=== PATIENT | male | born 1945 | race Two or more races ===

== ENCOUNTER 2017-07-07 07:52 | Outpatient (CLI) | payer OTHER | END 2017-07-07 12:19 | disposition home or self-care (01) | LOC: MRI 07:52 | DX: M75.81 Other shoulder lesions, right shoulder (principal) | CPT/HCPCS: 73221 ==

== ENCOUNTER 2017-07-07 08:33 | Outpatient (CLI) | payer OTHER | END 2017-07-07 12:19 | disposition home or self-care (01) | LOC: RAD 08:33 | DX: M15.8 Other polyosteoarthritis (principal); M75.81 Other shoulder lesions, right shoulder ==

== ENCOUNTER 2018-03-16 07:58 | Outpatient (CLI) | payer OTHER | END 2018-03-16 07:59 | disposition home or self-care (01) | LOC: MRI 07:58 | DX: F01.50 Vascular dementia, unspecified severity, without behavioral disturbance, psychotic disturbance, mood disturbance, and anxiety (principal); G31.84 Mild cognitive impairment of uncertain or unknown etiology | CPT/HCPCS: 70551 ==

== ENCOUNTER 2018-07-27 08:01 | Outpatient (CLI) | payer OTHER | END 2018-07-27 08:06 | disposition home or self-care (01) | LOC: RAD 08:01 | DX: M12.9 Arthropathy, unspecified (principal); M19.91 Primary osteoarthritis, unspecified site ==

== ENCOUNTER 2019-01-18 09:59 | Outpatient (CLI) | payer OTHER | END 2019-01-18 10:10 | disposition home or self-care (01) | LOC: NUCLEAR 09:59 | DX: M81.0 Age-related osteoporosis without current pathological fracture (principal) ==

== ENCOUNTER 2019-05-18 07:47 | Outpatient (CLI) | payer OTHER | END 2019-05-18 07:49 | disposition home or self-care (01) | LOC: SONOGRAMA 07:47 → MAMO-SONO 08:45 | DX: R31.0 Gross hematuria (principal) ==

== ENCOUNTER 2020-01-02 10:33 | Outpatient (CLI) | payer OTHER | END 2020-01-02 10:38 | disposition home or self-care (01) | LOC: RAD 10:33 | DX: H25.89 Other age-related cataract (principal); Z01.811 Encounter for preprocedural respiratory examination ==

== ENCOUNTER 2020-02-21 07:55 | Outpatient (CLI) | payer OTHER | END 2020-02-21 07:57 | disposition home or self-care (01) | LOC: RAD 07:55 | PROVIDERS: ATTEND Internal Medicine Rheumatology | DX: M16.0 Bilateral primary osteoarthritis of hip (principal); M25.551 Pain in right hip ==

== ENCOUNTER → 2020-04-08 | Outpatient (CLI) | payer OTHER | END | disposition home or self-care (01) | LOC: MRI 06:52 | PROVIDERS: ATTEND Psychiatry & Neurology Clinical Neurophysiology | DX: G31.89 Other specified degenerative diseases of nervous system (principal); F01.50 Vascular dementia, unspecified severity, without behavioral disturbance, psychotic disturbance, mood disturbance, and anxiety | CPT/HCPCS: 70551 ==

== ENCOUNTER 2020-12-04 09:32 | Outpatient (CLI) | payer OTHER | END 2020-12-04 09:37 | disposition home or self-care (01) | LOC: RAD 09:32 | PROVIDERS: ATTEND Internal Medicine Pulmonary Disease | DX: R06.02 Shortness of breath (principal); J43.2 Centrilobular emphysema; I27.22 Pulmonary hypertension due to left heart disease; Z87.891 Personal history of nicotine dependence ==

== ENCOUNTER 2021-01-16 07:12 | Outpatient (CLI) | payer OTHER | END 2021-01-16 07:22 | disposition home or self-care (01) | LOC: RAD 07:12 | PROVIDERS: ATTEND Family Medicine | DX: M72.2 Plantar fascial fibromatosis (principal) ==

== ENCOUNTER 2021-01-19 07:11 | Outpatient (CLI) | payer OTHER | END 2021-01-19 07:14 | disposition home or self-care (01) | LOC: RAD 07:11 | PROVIDERS: ATTEND Internal Medicine Rheumatology | DX: M17.11 Unilateral primary osteoarthritis, right knee (principal) ==

== ENCOUNTER 2021-01-26 13:23 | Outpatient (CLI) | payer OTHER | END 2021-01-26 13:24 | disposition home or self-care (01) | LOC: NUCLEAR 13:23 | PROVIDERS: ATTEND Internal Medicine Rheumatology | DX: M81.0 Age-related osteoporosis without current pathological fracture (principal); M85.88 Other specified disorders of bone density and structure, other site ==

== ENCOUNTER → 2021-03-02 | Outpatient (CLI) | payer OTHER | END | disposition home or self-care (01) | LOC: TOM 07:36 | PROVIDERS: ATTEND Internal Medicine Pulmonary Disease | DX: R91.1 Solitary pulmonary nodule (principal); J43.2 Centrilobular emphysema; I27.21 Secondary pulmonary arterial hypertension; Z87.891 Personal history of nicotine dependence ==

== ENCOUNTER 2021-08-27 07:10 | Outpatient (CLI) | payer OTHER | END 2021-08-27 07:20 | disposition home or self-care (01) | LOC: MRI 07:10 | PROVIDERS: ATTEND Family Medicine | DX: M48.02 Spinal stenosis, cervical region (principal); R29.818 Other symptoms and signs involving the nervous system; I67.89 Other cerebrovascular disease | CPT/HCPCS: 70551; 72141 ==

== ENCOUNTER 2021-09-17 07:05 | Outpatient (CLI) | payer OTHER | END 2021-09-17 07:15 | disposition home or self-care (01) | LOC: TOM 07:05 | PROVIDERS: ATTEND Internal Medicine Pulmonary Disease | DX: J43.2 Centrilobular emphysema (principal); R91.1 Solitary pulmonary nodule; Z87.891 Personal history of nicotine dependence; I27.29 Other secondary pulmonary hypertension ==

== ENCOUNTER 2021-10-13 07:32 | Outpatient (CLI) | payer OTHER | END 2021-10-13 07:33 | disposition home or self-care (01) | LOC: NUCLEAR 07:32 | PROVIDERS: ATTEND Internal Medicine Pulmonary Disease | DX: R91.1 Solitary pulmonary nodule (principal); J43.2 Centrilobular emphysema; Z87.891 Personal history of nicotine dependence; Z88.2 Allergy status to sulfonamides; Z88.8 Allergy status to other drugs, medicaments and biological substances | CPT/HCPCS: 78812; A9552 ==

== ENCOUNTER 2022-03-04 07:04 | Outpatient (CLI) | payer OTHER | END 2022-03-04 07:14 | disposition home or self-care (01) | LOC: TOM 07:04 | PROVIDERS: ATTEND Internal Medicine Pulmonary Disease | DX: J43.2 Centrilobular emphysema (principal); I27.20 Pulmonary hypertension, unspecified; R91.1 Solitary pulmonary nodule; Z87.891 Personal history of nicotine dependence ==

== ENCOUNTER 2022-05-18 07:03 | Outpatient (CLI) | payer OTHER | END 2022-05-18 07:18 | disposition home or self-care (01) | LOC: RAD 07:03 | PROVIDERS: ATTEND Orthopaedic Surgery | DX: M25.561 Pain in right knee (principal); M25.562 Pain in left knee; S83.200A Bucket-handle tear of unspecified meniscus, current injury, right knee, initial encounter | CPT/HCPCS: 73721 ==

== ENCOUNTER 2022-07-03 08:02 | Outpatient (CLI) | payer OTHER | END 2022-07-03 08:08 | disposition home or self-care (01) | LOC: RAD 08:02 → SONOGRAMA 08:02 | PROVIDERS: ATTEND Orthopaedic Surgery | DX: R07.9 Chest pain, unspecified (principal) ==

== ENCOUNTER 2022-08-16 07:09 | Outpatient (CLI) | payer OTHER | END 2022-08-16 07:22 | disposition home or self-care (01) | LOC: TOM 07:09 | PROVIDERS: ATTEND Family Medicine | DX: R91.1 Solitary pulmonary nodule (principal) ==

== ENCOUNTER → 2022-09-24 | Outpatient (CLI) | payer OTHER | END | disposition home or self-care (01) | LOC: MRI 06:45 | PROVIDERS: ATTEND Internal Medicine Rheumatology | DX: M54.2 Cervicalgia (principal); M47.812 Spondylosis without myelopathy or radiculopathy, cervical region | CPT/HCPCS: 72141 ==

== ENCOUNTER → 2022-11-12 | Outpatient (CLI) | payer OTHER | END | disposition home or self-care (01) | LOC: TOM 07:09 | DX: J43.9 Emphysema, unspecified (principal); I49.9 Cardiac arrhythmia, unspecified; R91.1 Solitary pulmonary nodule ==

== ENCOUNTER 2023-04-30 08:01 | Outpatient (CLI) | payer OTHER | END 2023-04-30 08:06 | disposition home or self-care (01) | LOC: RAD 08:01 | PROVIDERS: ATTEND Urology | DX: I10 Essential (primary) hypertension (principal) ==

== ENCOUNTER 2023-06-14 08:42 | Outpatient (CLI) | payer OTHER | END 2023-06-14 08:53 | disposition home or self-care (01) | LOC: MRI 08:42 | PROVIDERS: ATTEND Psychiatry & Neurology Clinical Neurophysiology | DX: G30.1 Alzheimer's disease with late onset (principal); G31.84 Mild cognitive impairment of uncertain or unknown etiology | CPT/HCPCS: 70551 ==

== ENCOUNTER 2023-07-18 07:04 | Outpatient (CLI) | payer OTHER | END 2023-07-18 07:12 | disposition home or self-care (01) | LOC: TOM 07:04 | PROVIDERS: ATTEND Internal Medicine Cardiovascular Disease | DX: K74.00 Hepatic fibrosis, unspecified (principal); R19.00 Intra-abdominal and pelvic swelling, mass and lump, unspecified site ==

== ENCOUNTER 2024-01-06 07:08 | Outpatient (CLI) | payer OTHER | END 2024-01-06 07:13 | disposition home or self-care (01) | LOC: SONOGRAMA 07:08 | PROVIDERS: ATTEND Family Medicine | DX: K40.31 Unilateral inguinal hernia, with obstruction, without gangrene, recurrent (principal) ==

== ENCOUNTER 2025-03-28 15:21 | Emergency (ER) | payer OTHER ==
[~2025-03-28] VITALS: Ht 175.3 cm; Wt 57.2 kg
[2025-03-28 15:36] VITALS: BP 126/65; O2SAT 97
[2025-03-28] MEDS ORDERED: ACETAMINOPHEN 500 MG GEL..CAP PO ONE (17:15)
[2025-03-28] MEDS ORDERED: ORPHENADRINE CITRATE 30 MG/ML AMPUL IM ONE (17:15)
[2025-03-28 18:06] LABS: BASO % 0.5 % (0.1-1.2); EOS # 0.08 (0.04-0.54); EOS % 0.8 % (0.7-7.0); LYMPH # 1.27 (1.18-3.74); LYMPH % 12.1 % (19.3-53.1); MEAN PLATELET VOLUME 8.20 fl (9.4-12.4); MONO # 0.95 (0.24-0.82); MONO % 9.1 % (4.7-12.5); NEUT # 7.73 (1.56-6.13); NEUT % 73.8 % (34.0-71.1); RED CELL DISTRIBUTION WIDTH 13.3 % (11.6-14.4)
[2025-03-28 18:32] LABS: INR 0.98
[2025-03-28 18:37] LABS: ALT/SGPT 27.0 U/L (12-78); AST/SGOT 19.0 U/L (15-37); BILIRUBIN TOTAL 0.44 mg/dL (0.3-1.2); BUN CREA RATIO 28.0 (7.0-25.0); CREATININE SERUM 0.87 mg/dL (0.70-1.30); GFR 84.65; GLOBULINA 4.7 G/DL (2.4-3.5); GLUCOSE FASTING 104.0 mg/dL (65-100); OSMOLALITY SERUM 289.0 MOSM/KG (275-295)
[2025-03-28 18:54] LABS: BAND MAN 3.0 %; LYMPHOCYTE MAN 10.0 %; METAMYELOCYTE 1.0 %; MONOCYTE MAN 9.0 %; NEUTROPHILS MAN 73.0 %
[2025-03-28 18:55] LABS: MYELOCYTE 1.0 %
[2025-03-28] MEDS ORDERED: NORFLEX100MG PO (22:43)
== END 2025-03-28 22:55 | disposition home or self-care (01) ==
LOC: ER 15:21
PROVIDERS: General Practice
DX: S01.81XA Laceration without foreign body of other part of head, initial encounter (principal); W18.39XA Other fall on same level, initial encounter; Y93.89 Activity, other specified; Y92.89 Other specified places as the place of occurrence of the external cause; Y99.9 Unspecified external cause status; Z88.2 Allergy status to sulfonamides

== ENCOUNTER 2025-04-05 07:35 | Emergency (ER) | payer OTHER ==
[~2025-04-05] VITALS: Ht 175.3 cm; Wt 56.7 kg
[~2025-04-05 07:35] MED LIST: NORFLEX100MG PO
== END 2025-04-05 09:12 | disposition home or self-care (01) ==
LOC: ER 07:36
DX: Z48.02 Encounter for removal of sutures (principal); Z88.8 Allergy status to other drugs, medicaments and biological substances

== ENCOUNTER 2025-04-15 08:14 | Outpatient (CLI) | payer OTHER | END 2025-04-15 08:15 | disposition home or self-care (01) | LOC: NUCLEAR 08:14 | PROVIDERS: ATTEND Psychiatry & Neurology Clinical Neurophysiology | DX: G30.1 Alzheimer's disease with late onset (principal) | CPT/HCPCS: 78803; A9557 ==